=== PATIENT | male | born 1955 | race Caucasian/White ===

== ENCOUNTER 2016-12-28 17:57 | Emergency (ER) | payer OTHER ==
[~2016-12-28] VITALS: Ht 165.1 cm; Wt 75.0 kg
[2016-12-28 17:59] VITALS: BP 133/83; PULSE 79; RESP 20; O2SAT 99
--- NOTE | 2016-12-28 18:58 | ED.REPORT ---
HPI-Extremity Problem Upper Date of Service December 28, 2016 ED Provider: Doc,Ed MD History of Present Illness: old injury to left wrist, moving a pallet of wood over a year ago. wrist is getting weaker. [facility] care [facility] at [facility]. suggested physical therapy. taking advil. does a lot of lifting at work, works at [employer]. right hand dominant. 01/01 pain Nursing Notes Stated Complaint: LEFT WRIST PAIN Chief Complaint: Extremity Trauma Nursing Notes Reviewed: Yes Allergies: Coded Allergies: No Known Allergies (Unverified , 12/28/16) General Time Seen by MD: 18:57 Chief Complaint Wrist injury left Hx Obtained From: Patient Onset Occurred: Onset unknown Symptom Duration: Since onset Past Medical History Past Medical History Denies: Asthma Past Surgical History kidney stones Smoking History Former Smoker (quit 16 years ago) Social History quit etoh 16 years ago Alcohol Use: Denies alcohol use Drug Use: Denies drug use Occupation works at [employer] 12/28/2016 Ambulatory Status Independent Review of Systems Basic Review of Systems Eyes: Vision NL GI: No anorexia Hematologic: No bleeding Psychiatric: Normal thought content Physical Exam Initial Vital Signs Vital Signs (First) Date Time Temp Pulse Resp B/P Pulse Ox O2 Delivery O2 Flow Rate FiO2 12/28/16 17:59 36 79 20 133/83 99 Room Air Initial VS: Reviewed, Vital signs normal General/Constitutional: Well-developed, Well-nourished Head / Eyes: Atraumatic, Normocephalic, PERRL ENT: Mucous membranes moist, Conjunctiva normal, No scleral icterus Neck: Supple, Non-tender, Full range of motion Respiratory: Breath sounds normal, Clear to auscultation, No respiratory distress Cardiovascular: Regular rate & rhythm, Heart sounds normal, Intact distal pulses Abdomen / GI: Soft, Non-tender, No guarding, No rebound, No distention Back: No CVA tenderness Lymphatic: No lymphadenopathy Lower Extremities: Vascular intact, Neuro intact, No swelling, No tenderness Skin: Warm, Dry, No cyanosis Neurologic: Alert, Oriented, Nonfocal Psychiatric: Mood/affect normal, Behavior normal, Normal thought content General/Constitutional: Awake, Alert, No acute distress, Well appearing, Well developed, Well hydrated, Well nourished, Cooperative, Not toxic appearing Respiratory / Chest: Atraumatic, Breath sounds NL, Breath sounds = bilat, No respiratory distress Cardiovascular: Heart rate NL, Regular rhythm, Heart sounds NL, No gallop Upper Extremity / MS: Atraumatic, Inspection NL, Full range of motion exam indicates left wrist/hand weakness, 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 Positive tinels no obvious muscle wasting noted on themar eminence Interpretation & Diagnostics X-Ray Interpretation Xray Interpretation: INDICATIONS: weakness TECHNIQUE: 3 views of the hand(s) acquired. COMPARISON: None. FINDINGS: Bones: No fractures or dislocations. Carpal bones are normally aligned. No suspicious bony lesions. A probable bone island is present within the distal phalanx of the first digit. Soft tissues: No suspicious soft tissue calcifications. IMPRESSION: 1. No acute radiographic findings. Probable bone island of the distal phalanx of the first digit. Dictated by: Lily Rios M.D. on 12/28/2016 at 20:05 Approved by: Lily Rios M.D. on 12/28/2016 at 20:06 PROCEDURE: X-RAY LEFT WRIST COMPLETE, MINIMUM THREE VIEWS ([id number]) INDICATIONS: weakness TECHNIQUE: 4 views of the wrist were acquired. COMPARISON: None. FINDINGS: Bones: No fractures or dislocations. No suspicious bony lesions. Mild degenerative changes present at the first CMC joint and triscaphe the joint. Scaphoid view: The scaphoid is intact. Soft tissues: No suspicious soft tissue calcifications. IMPRESSION: Mild degenerative changes. Dictated by: Lily Rios M.D. on 12/28/2016 at 20:06 Approved by: Lily Rios M.D. on 12/28/2016 at 20:06 Re-Eval/Medical Decision Med Decision/Clinical Course 61 year old male presents for evualation of left wrist weakness, onset unknown.. patient rep[orts remote injury but no recent injury. X-ray is negative for any fracture. No sign of fracture or compartment syndrome. Exam is most consistent with carpal tunnel. Refered to Dr. Dhillon for futher evualation Discharge & Departure Impression: Primary Impression: Wrist pain, left Disposition: Home Patient Instructions: Carpal Tunnel Syndrome (ED), Carpal Tunnel Syndrome Exercises (GEN) Additional Instructions: The x-ray is negative for any sign of fracture. The exam indicates possible carpal tunnel syndrome. Please follow with Dr. Dhillon, ortho hand, for an evualation and possible surgery. Physical therapy is a good idea and should continue. Please wear the new brace. Use ice when able. Also ibuprofen 800 mg 3 times a day. Referrals: Jose R Dhillon DO EDSupervising Provider for APC: Elias Sweeney MD copies to: Jose R Dhillon DO Fior garcia [facility] December 28, 2016 18:58
--- NOTE | 2016-12-28 20:07 | DRSVH ---
PROCEDURE: X-RAY LEFT HAND, MINIMUM THREE VIEWS ([id number]) INDICATIONS: weakness TECHNIQUE: 3 views of the hand(s) acquired. COMPARISON: None. FINDINGS: Bones: No fractures or dislocations. Carpal bones are normally aligned. No suspicious bony lesions . A probable bone island is present within the distal phalanx of the first digit. Soft tissues: No suspicious soft tissue calcifications. IMPRESSION: 1. No acute radiographic findings. Probable bone island of the distal phalanx of the first digit. Dictated by: Lily Rios M.D. on 12/28/2016 at 20:05 Approved by: Lily Rios M.D. on 12/28/2016 at 20:06
--- NOTE | 2016-12-28 20:08 | DRSVH ---
PROCEDURE: X-RAY LEFT WRIST COMPLETE, MINIMUM THREE VIEWS ([id number]) INDICATIONS: weakness TECHNIQUE: 4 views of the wrist were acquired. COMPARISON: None. FINDINGS: Bones: No fractures or dislocations. No suspicious bony lesions. Mild degenerative changes present at the first CMC joint and triscaphe the joint. Scaphoid view: The scaphoid is intact. Soft tissues: No suspicious soft tissue calcifications. IMPRESSION: Mild degenerative changes. Dictated by: Lily Rios M.D. on 12/28/2016 at 20:06 Approved by: Lily Rios M.D. on 12/28/2016 at 20:06
== END 2016-12-28 20:40 | disposition home or self-care (01) ==
LOC: SED 17:57
DX: M25.532 Pain in left wrist (principal); Z87.891 Personal history of nicotine dependence; Z87.828 Personal history of other (healed) physical injury and trauma